=== PATIENT | male | born 1995 | race Caucasian/White ===

== ENCOUNTER 2017-01-22 01:49 | Emergency (ER) | payer SELFPAY ==
[~2017-01-22] VITALS: Ht 177.8 cm; Wt 78.0 kg
[2017-01-22] MEDS ORDERED: SODIUM CHLORIDE 0.9% 1,000 ML IV ONE (02:03)
[2017-01-22 02:25] LABS: HEMATOCRIT. 44.8 % (42.0-52.0); HEMOGLOBIN. 14.5 g/dL (14.0-18.0); MEAN CORPUSCULAR HEMOGLOBIN 25.8 pg (28.0-32.0); MEAN CORPUSCULAR VOLUME 79.7 fL (80.0-94.0); PLATELET 293 x1000/uL (130-400); RED BLOOD CELL COUNT 5.62 mill/uL (4.7-6.1)
[2017-01-22] MEDS ORDERED: LORAZEPAM 2MG/ML CPJ IM ONE (02:30)
[2017-01-22 02:39] LABS: CARBON DIOXIDE 18 mEq/L (21-32); CHLORIDE 106 mEq/L (98-107); CREATINE KINASE 227 IU/L (39-308); ETHANOL BLOOD < 10 mg/dL; TROPONIN I 0.08 ng/mL (0.00-0.04)
[2017-01-22] MEDS ORDERED: SODIUM CHLORIDE 0.9% 1000ML BAG (SEPSIS BOLUS) IV NR (03:15)
[2017-01-22] MEDS ORDERED: KCL 20MEQ/100ML PREMIX 100 ML IV NR (03:15)
[2017-01-22] MEDS ORDERED: LORAZEPAM 2MG/ML CPJ IV ONE (03:15)
[2017-01-22] MEDS ORDERED: ZIPRASIDONE MESYLATE 20MG/VIAL IM ONE (04:00)
[2017-01-22 04:44] LABS: PLATELET ESTIMATE NORMAL
[2017-01-22 06:25] LABS: *AMPHETAMINES SCREEN URINE PRESUMTIVE POSITIVE (NEGATIVE); *BARBITURATES SCREEN URINE NEGATIVE (NEGATIVE); *BENZODIAZEPINES SCREEN URINE NEGATIVE (NEGATIVE); *COCAINE SCREEN URINE NEGATIVE (NEGATIVE); CANNABINOID URINE SCREEN NEGATIVE (NEGATIVE); OPIATES URINE SCREEN NEGATIVE (NEGATIVE); PHENCYCLIDINE URINE SCREEN NEGATIVE (NEGATIVE)
[2017-01-22 07:13] LABS: METHADONE URINE SCREEN NEGATIVE (NEGATIVE)
[2017-01-22 11:23] VITALS: BP 136/85
== END 2017-01-22 14:34 | disposition left against medical advice (07) ==
LOC: ER 01:49 → CANBEDREQ 17:46
DX: T43.621A Poisoning by amphetamines, accidental (unintentional), initial encounter (principal); F31.9 Bipolar disorder, unspecified; R00.2 Palpitations; Y92.89 Other specified places as the place of occurrence of the external cause
CPT/HCPCS: 36415; 70450; 71010; 80053; 80305; 82550; 83605; 83690; 83735; 83880; 84484; 85025; 85379; 87040; 93005; 96361; 96365; 96366; 96372; 96375; 99285; G0482; J2060; J3480; J3486; J7030; Z7610